=== PATIENT | female | born 1950 | race Caucasian/White ===

== ENCOUNTER → 2017-05-19 11:17 | Outpatient (CLI) | payer MEDICARE, SELFPAY ==
--- NOTE | 2017-05-19 11:26 | XR_ITS ---
XR chest 2V HISTORY: Chest pain on breathing ITS.REASON: PLEURISY ORDERING PHYSICIAN: Noé Block MD PATIENT AGE: 67 years COMPARISON: 10/19/2013 FINDINGS: The cardiomediastinal silhouette and pulmonary vascularity are within normal limits. The lungs are clear without infiltrates, suspicious nodules, or pleural effusions. There are old left-sided rib fractures.. IMPRESSION: No change with no acute finding
[2017-05-19 12:01] LABS: Basophils % 0.5 % (0.1-2.0); Eosinophils # 0.1 K/mm3 (0.0-0.4); Eosinophils % 1.4 % (0.1-12.0); Lymphocytes # 1.2 K/mm3 (0.7-4.5); Lymphocytes % 21.4 K/mm3 (10-50); Mean Corpuscular HGB Conc 32.6 g/dL (31.8-35.4); Mean Corpuscular Hemoglobin 28.1 pg (27.0-31.2); Mean Corpuscular Volume 86.2 fl (81-99); Mean Platelet Volume 7.8 fl (7.4-10.4); Monocytes # 0.4 K/mm3 (0.1-1.0); Monocytes % 7.5 % (1.7-9.3); Neutrophils # 3.8 K/mm3 (1.8-7.8); Neutrophils % 69.1 % (37.0-80.0); Platelet Count 243 K/mm3 (142-424); Red Blood Count 4.99 M/mm3 (4.20-5.40); Red Cell Distribution Width 12.9 % (11.5-17.5); White Blood Count 5.4 K/mm3 (4.8-10.8)
[2017-05-19 12:51] LABS: Alanine Aminotransferase 25 U/L (12-78); Albumin/Globulin Ratio 1.2 (1.1-1.8); Alkaline Phosphatase 64 U/L (46-116); Anion Gap 12.5 mEq/L (5-15); Aspartate Amino Transferase 23 U/L (15-37); Bilirubin,Total 0.3 mg/dL (0.2-1.0); Blood Urea Nitrogen 16 mg/dL (7-18); Calcium 9.3 mg/dL (8.5-10.1); Carbon Dioxide 27 mmol/L (21.0-32.0); Chloride 105 mmol/L (98-107); Creatine Kinase 34 U/L (26-192); Creatinine,Serum 0.78 mg/dL (0.55-1.02); Estimated Glomerular Filt Rate 73 ml/min (>60); GFR (African American) 89 ML/MIN (>60); Globulin 3.4 gm/dl (1.3-3.2); Glucose 110 mg/dL (74-106); Potassium 4.5 mmoL/L (3.5-5.1); Sodium 140 mmol/L (136-145); Total Protein,Serum 7.4 gm/dL (6.4-8.2); Troponin I < 0.02 ng/ml (0.00-0.06)
[2017-05-19 12:53] LABS: CKMB Relative Index 1.5 U/L (0-4.0); Creatine Kinase MB < 0.5 mg/ml (0.0-3.6)
== END ==
PROVIDERS: PCP Internal Medicine Adolescent Medicine; Visit Provider Internal Medicine Adolescent Medicine
DX: R09.1 Pleurisy (principal)
CPT/HCPCS: 36415; 71046; 80053; 82550; 82553; 84484; 85025

== ENCOUNTER → 2018-04-11 09:33 | Outpatient (CLI) | payer MEDICARE, SELFPAY ==
--- NOTE | 2018-04-11 09:37 | MM_ITS ---
MM Dig screening mamm BI w/CAD ORDERING PHYSICIAN : Maykel Goldstein MD PATIENT AGE: 68 years GENDER: Female COMPARISON: Bilateral digital mammogram December 2013 is most useful Film screen left mammogram September 2001 of limited benefit INDICATION: ITS.REASON: SCREENINGNo hormones. Previous cyst aspiration right breast. Mother with breast cancer age 80 for postmenopausal. TECHNIQUE: Standard CC and MLO images were obtained. R2 CAD reviewed. Axillary cc view both breast included & also helpful when compared to previous 2014 study FINDINGS: Moderate density breast bilaterally. Mammography is of decreased sensitivity in regions of of more pronounced, dense fibroglandular tissue, as seen towards upper-outer quadrant bilaterally. However prior studies show no appreciable change. Overall satisfactory Stable appearance bilaterally no new areas of significant concern in either breast. If any palpable area should develop low threshold for ultrasound increased as ultrasound is useful augment, compliment to mammography in areas of dense breast tissue. Prior 2014 mammogram films are very helpful and supportive stable pattern. Minimal basilar calcifications again seen bilaterally . IMPRESSION: 1. Stable bilateral mammogram . Moderately dense breast bilaterally with no significant new areas of concern 2. Bilateral follow-up in one year recommended and should be encouraged BI-RADS Category: 2 Benign Finding(s) RECOMMENDED FOLLOW-UP: 1YR 1 YEAR FOLLOW-UP (A letter has been sent to the patient regarding results of the study.)
--- NOTE | 2018-04-11 09:38 | XR_ITS ---
XR DEXA axial skeleton HISTORY: ITS.REASON: POST MENOPAUSAL ORDERING PHYSICIAN: Maykel Goldstein MD PATIENT AGE: 68 years COMPARISON: Ill and 1316 1112%. 0.16 1. 2149 04/10/2018 FINDINGS: The BMD measured at the AP spine L1-L4 is 0.680 g/cm squared with a T score of -4.2. This is considered Osteoporotic according to the World Health Organization criteria. Fracture risk is High. Treatment is advised. The mean hip density has a T score of -3.0. IMPRESSION: Osteoporosis with high fracture risk. Treatment recommended. Suggest follow-up exam April 2019
== END ==
PROVIDERS: PCP Internal Medicine Adolescent Medicine; Visit Provider Internal Medicine Adolescent Medicine
DX: Z12.31 Encounter for screening mammogram for malignant neoplasm of breast (principal); Z78.0 Asymptomatic menopausal state
CPT/HCPCS: 77067; 77080

== ENCOUNTER → 2020-09-16 18:30 | Outpatient (CLI) | payer MEDICARE, SELFPAY ==
[2020-09-16 19:01] LABS: Basophils # 0.1 K/mm3 (0-0.2); Eosinophils # 0.2 K/mm3 (0.0-0.4); Eosinophils % 3.6 % (0.1-12.0); Hematocrit 41.5 % (37.0-47.0); Hemoglobin 13.7 g/dL (12.2-16.2); Lymphocytes # 2.3 K/mm3 (0.7-4.5); Lymphocytes % 42.3 % (10-50); Mean Corpuscular Volume 87.9 fl (81-99); Mean Platelet Volume 9.5 fl (7.4-10.4); Monocytes # 0.5 K/mm3 (0.1-1.0); Monocytes % 8.9 % (1.7-9.3); Neutrophils # 2.4 K/mm3 (1.8-7.8); Neutrophils % 44.3 % (37.0-80.0); Platelet Count 293 K/mm3 (142-424); Red Blood Count 4.72 M/mm3 (4.20-5.40); Red Cell Distribution Width 13.2 % (11.5-17.5); White Blood Count 5.5 K/mm3 (4.8-10.8)
[2020-09-16 19:21] LABS: Alanine Aminotransferase 16 U/L (12-78); Albumin Level 4.7 g/dl (3.5-5.0); Albumin/Globulin Ratio 1.8 (1.1-1.8); Alkaline Phosphatase 81 U/L (38-126); Anion Gap 9.4 mEq/L (5-15); Aspartate Amino Transferase 28 U/L (14-36); Bilirubin,Total 0.4 mg/dl (0.2-1.3); Blood Urea Nitrogen 10 mg/dl (7-17); Calcium 9.6 mg/dl (8.4-10.2); Carbon Dioxide 27 mmol/L (22.0-30.0); Chloride 105 mmol/L (98-107); Cholesterol 216 mg/dl (140-200); Estimated Glomerular Filt Rate 99 ml/min (>60); GFR (African American) 119 ML/MIN (>60); Globulin 2.6 g/dL (1.3-3.2); Glucose 94 mg/dl (74-100); HDL Cholesterol 54 mg/dl (40-60); Potassium 4.4 mmoL/L (3.5-5.1); Sodium 137 mmol/L (136-145); Total Protein,Serum 7.3 g/dl (6.3-8.2); Triglycerides 153 mg/dl (30-150); VLDL Cholesterol 31 mg/dL (0-40)
[2020-09-16 19:33] LABS: Direct LDL Cholesterol 103.99 mg/dL (100-129)
[2020-09-16 19:52] LABS: Thyroid Stimulating Hormone 3.21 uIU/mL (0.465-4.68)
[2020-09-16 20:11] LABS: Vitamin B12 496 pg/mL (239-931)
[2020-09-16 20:35] LABS: 25-OH Vitamin D, Total 30.1 ng/mL (30-100)
== END ==
PROVIDERS: Visit Provider Internal Medicine Adolescent Medicine
DX: Z00.00 Encounter for general adult medical examination without abnormal findings (principal); R53.81 Other malaise; R53.83 Other fatigue; D12.6 Benign neoplasm of colon, unspecified; K21.9 Gastro-esophageal reflux disease without esophagitis; N20.0 Calculus of kidney
CPT/HCPCS: 80053; 80061; 82306; 82607; 84443; 85025

== ENCOUNTER → 2020-10-14 10:43 | Outpatient (CLI) | payer MEDICARE, SELFPAY ==
--- NOTE | 2020-10-14 10:45 | MM_ITS ---
PROCEDURE INFORMATION: Exam: MG Screening 3D Mammography Exam date and time: 10/14/2020 10:45 AM Age: 70 years old Clinical indication: screening mammogram TECHNIQUE: Imaging protocol: Screening tomosynthesis and 2D mammography including computer-aided detection (CAD) when performed. COMPARISON: 1. MG SCBI MM Dig screening mamm BI w/CAD 04/11/2018 10:13 AM 2. MG DMSB DIG MAMM-SCREEN ALEX 12/18/2013 9:27 AM FINDINGS: MAMMOGRAPHY: Breast composition: The breast tissue is heterogeneously dense, which may obscure small masses. Mass: None. Architectural distortion: No new or suspicious architectural distortion. Calcifications: Stable benign-appearing calcifications are present. No new or suspicious cluster of microcalcifications have developed. Asymmetric density: No new or suspicious asymmetric density is present Skin thickening: None. Axillary adenopathy: None. IMPRESSION: No mammographic evidence of malignancy. Recommend annual screening mammography unless otherwise clinically indicated. ASSESSMENT: BI-RADS category 2: Benign
== END ==
PROVIDERS: PCP Internal Medicine Adolescent Medicine; Visit Provider Internal Medicine Adolescent Medicine
DX: Z12.31 Encounter for screening mammogram for malignant neoplasm of breast (principal); Z11.52 Encounter for screening for COVID-19
CPT/HCPCS: 77063; 77067; U0003

== ENCOUNTER 2020-10-16 06:21 | Day surgery (SDC) | payer MEDICARE, SELFPAY ==
[2020-10-09 10:36] VITALS: BMI 22.1
[2020-10-16] VITALS (7 sets, daily range): BP systolic 77–122; BP diastolic 48–84; PULSE 65–107; RESP 16–18; TEMP 36.4–36.8; O2SAT 94–99
--- NOTE | 2020-10-16 06:58 | HMH.ANESCL ---
[facility] Anesthesia Checklist - Structural Data Admitted From: Home Planned Operative Procedure/s: egd/colonoscopy Consent for Planned Operative Procedure(s) Verified: Yes - Additional verifications Anesthesia Reactions: No - Airway Assessment C-Spine Mobility Assessed: Yes TMJ Mobility Assessed: Yes Dentition: Good Dentition - Neurological Assessment Level of Consciousness: Awake, Alert, Appropriate - Anesthesia Plan Anesthesia Risk discussed: Yes Anesthesia Plan: Verified ASA Class: II Anesthesia Type: MAC [facility] History I have reviewed the patient's past medical history: Yes Medical History: Reports:: Gastroesophageal Reflux Disease(GERD), Kidney Stones Denies:: Cancer, Diabetes Mellitus Type 1, Diabetes Mellitus Type 2, Internal Pacemaker, Lung Disease, MRSA, Seizures *Have you ever received a pneumonia vaccine?: Yes *Have you received a flu vaccine this season?: Yes Anesthesia experience/problems:: none Other Surgeries: Yes: Colonoscopy, Other. No: Pacemaker Amputation: No Fractures: Yes - *Social History Last grade of school completed: High school graduate Smoking Status: Never smoker Alcohol Intake: never Substance Use Type: denies use *Occupational Status:: retired Housing: house Household Members: spouse, children *Travel in the last 8 weeks: None Family Hx:: Cancer
--- NOTE | 2020-10-16 08:20 | HMH.SCOPE ---
- Procedure: Date: 10/16/20 Patient Date of :: 1950 Procedure Performed:: Esophagogastroduodenoscopy with biopsy Colonoscopy with polypectomy Indications:: Gastroesophageal reflux History of multiple complex polyps including a 1.5 cm polyp at 10 cm that was a tubular adenoma with a small focus of high-grade dysplasia. This was excised in 2019. 2 separate colonoscopies in 2019 revealed multiple other complex polyps, hemorrhoidal cushions, scattered diverticulosis, and severe spasticity limiting visualization. Performing Provider:: Jimmie Almanza MD Referring Provider:: Dr. Block Sedation:: Monitored anesthesia care Procedure:: After informed consent was obtained the patient was taken to the endoscopy suite. Sedation ensued after the patient was transferred to the left lateral decubitus position. Pulse, blood pressure, and oxygen saturation were monitored throughout the procedure. The endoscope was advanced beyond the duodenal bulb. Retroflexion within the gastric lumen was accomplished. The gastroscope was carefully removed. Digital rectal exam revealed no significant abnormality. The colonoscope was placed in position. The entire colon was evaluated. The colonoscope was carefully removed and the patient was transferred to recovery in stable condition. Please see findings and specimens below for detail. Findings:: Mild gastritis Sliding hiatal hernia Schatzki ring Small varix at 25 cm Junction at 38 cm Bowel preparation fair to moderate Fairly significant spasticity Hemorrhoidal tag/cushions unchanged Scattered diverticulosis (mostly in sigmoid) Lobulated polyps Specimens:: Antral biopsy Biopsy of gastroesophageal junction/Schatzki ring Hepatic flexure polyp Lobulated transverse colon polyp (snare) Recommendations:: Proton pump inhibition Follow-up pathology Timing of repeat colonoscopy is pending pathology but will likely be around 2-3 years secondary to history of multiple complex polyps, polyps noted on fairly short-term repeat evaluation, and spasticity. Complications:: No immediate Estimated blood obtained (mL): 1
== END 2020-10-16 09:10 | disposition home or self-care (01) ==
LOC: OUTP 06:23
PROVIDERS: PCP Internal Medicine Adolescent Medicine; Visit Provider Surgery
PROC: 0DJ08ZZ Inspection of Upper Intestinal Tract, Via Natural or Artificial Opening Endoscopic (ICD-10-PCS; CPT 43235; principal; 2020-10-16 07:30)
DX: Z12.11 Encounter for screening for malignant neoplasm of colon (principal); K21.9 Gastro-esophageal reflux disease without esophagitis; K57.30 Diverticulosis of large intestine without perforation or abscess without bleeding; K64.8 Other hemorrhoids; K63.5 Polyp of colon; K58.9 Irritable bowel syndrome, unspecified; K29.60 Other gastritis without bleeding; K44.9 Diaphragmatic hernia without obstruction or gangrene; K22.2 Esophageal obstruction; I85.00 Esophageal varices without bleeding; Z86.010 Personal history of colon polyps; Z79.899 Other long term (current) drug therapy
CPT/HCPCS: 43239; 45385; 88305

== ENCOUNTER 2020-11-18 18:03 | Emergency (ER) | payer MEDICARE, SELFPAY ==
[2020-11-18 18:04] VITALS: BP 157/93; PULSE 107; RESP 16; TEMP 37.2; O2SAT 95; BMI 22.1
--- NOTE | 2020-11-18 18:14 | HMH.EDGENADL ---
ED Disposition Condition on Discharge: Good - Critical Care Critical Care Time: No <MissaelAugustus - Last Filed: 11/18/20 20:16> <Floyd Chacon - Last Filed: 11/18/20 20:58> Clinical Impression: Right leg numbness, Right leg weakness Disposition: Home, Self-Care Instructions: DI for Muscle Weakness, DI for Numbness/Tingling Additional Instructions: call pcp for follow up Referrals: Noé Block MD [Primary Care Provider] - Attestation: On 11/18/20, the high probability of a clinically significant, sudden or life threatening deterioration of the following system(s) required my full and direct attention, intervention and personal management. The time I documented below is in addition to time spent performing reported procedures but includes the following listed in this critical care notation. Medical Decision Making - Josh Inquiry Pt receiving controlled substance: No - Lab Data Result diagrams: 11/18/20 18:30 11/18/20 18:30 - Reevaluation(s) Time: 20:18 <MissaelAugustus - Last Filed: 11/18/20 20:16> - Lab Data Lab results reviewed: Yes: I reviewed the patient's lab results. Result diagrams: 11/18/20 18:30 11/18/20 18:30 - CT Data CT Scan: Other (cta head/neck) Time Received: 20:[address] Reviewed: Yes: I have viewed the radiologist's interpretation Preliminary Findings: Normal/NAD <Floyd Chacon - Last Filed: 11/18/20 20:58> Vital Signs: 11/18/20 18:04 11/18/20 18:45 11/18/20 19:00 Temperature 99.0 F Temperature Source Oral Pulse Rate 99 H 97 H Pulse Rate [Left] 107 H Respiratory Rate 16 18 18 Blood Pressure 145/83 H 130/85 Blood Pressure [Right Arm] 157/93 H Blood Pressure Mean [Right Arm] 114 02 Sat by Pulse Oximetry 95 96 96 Oxygen Delivery Method Room Air - Lab Data Lab Results 11/18/20 18:30: WBC 6.1, RBC 4.47, Hgb 12.7, Hct 38.4, MCV 85.8, MCH 28.5, MCHC 33.2, RDW 12.4, Plt Count 246, MPV 7.8, Neut % (Auto) 50.9, Lymph % (Auto) 35.8, [place] % (Auto) 8.6, Eos % (Auto) 4.1, Baso % (Auto) 0.6, Neut # (Auto) 3.1, Lymph # (Auto) 2.2, [place] # (Auto) 0.5, Eos # (Auto) 0.3, Baso # (Auto) 0.0 11/18/20 18:30: Sodium 139, Potassium 4.3, Chloride 105, Carbon Dioxide 25, Anion Gap 13.3, BUN 21 H, Creatinine 0.80, Estimated Creat Clear 49, Estimated GFR 71, Est GFR ( Amer) 86, Glucose 110 H, Calcium 8.9 Orders (Tests/Meds): ED MEDICATIONS Discontinued Medications Generic Name Dose Route Start Last Admin Trade Name Freq PRN Reason Stop Dose Admin Diphenhydramine HCl 25 mg 11/18/20 18:33 11/18/20 18:45 Diphenhydramine 50mg/Ml Vial IV 11/18/20 18:34 25 mg ONCE ONE Administration Iopamidol 100 ml 11/18/20 19:51 11/18/20 19:52 Iopamidol-370 (76%);100ml Bottle IV 11/18/20 19:52 100 ml ONCE ONE Administration Methylprednisolone Sodium Succinate 125 mg 11/18/20 18:33 11/18/20 18:45 Methylprednisolone Sod Succ 125mg Vial IV 11/18/20 18:34 125 mg ONCE ONE Administration Sodium Chloride 50 ml 11/18/20 19:51 11/18/20 19:52 0.9 % Sodium Chloride 50 Ml Vial IV 11/18/20 19:52 50 ml ONCE ONE Administration Sodium Chloride 10 ml 11/18/20 19:51 11/18/20 19:52 Sodium Chloride 0.9% 10ml Syr (Rad Only) IV 11/18/20 19:52 10 ml ONCE ONE Administration - ECG Data Tracing #1 EKG interpreted by Augustus Canas MD: Rhythm: sinus Rate: 93 Higgins: normal Ectopy: none Conduction: normal ST Segment Changes: none T Wave Changes: none Q Waves: none No evidence of acute ischemia or injury Normal electrocardiogram (Augustus Canas) - Reevaluation(s) Reevaluation #1: Asymptomatic. All symptoms have completely resolved. (Augustus Canas) Medical Decision Narrative: 8:00 PM: At shift change, I have discussed the patient with the oncoming physician, who will assume care of the patient at this time. I have discussed all clinical information including history, physical and diagnostic study r
--- NOTE | 2020-11-18 18:25 | CT_ITS ---
PROCEDURE INFORMATION: Exam: CT Head Without Contrast Exam date and time: 11/18/2020 6:25 PM Age: 70 years old Clinical indication: Numbness / parasthesia; Bilateral; Patient HX: Patient went temporarily numb from neck down while shopping today. Possible TIA per Dr maradiaga TECHNIQUE: Imaging protocol: Computed tomography of the head without contrast. Radiation optimization: All CT scans at this facility use at least one of these dose optimization techniques: automated exposure control; mA and/or kV adjustment per patient size (includes targeted exams where dose is matched to clinical indication); or iterative reconstruction. COMPARISON: [facility] MRI-BRAIN W/WO 11/26/2013 8:52 AM FINDINGS: Brain: Normal. No hemorrhage. Unremarkable white matter. No mass effect. Cerebral ventricles: No ventriculomegaly. Paranasal sinuses: Mucosal disease better seen on comparison CTA. Mastoid air cells: Visualized mastoid air cells are well aerated. Bones/joints: Unremarkable. No acute fracture. Soft tissues: Unremarkable. Other findings: No reconstructions provided. IMPRESSION: No acute intracranial pathology
--- NOTE | 2020-11-18 18:25 | CT_ITS ---
PROCEDURE INFORMATION: Exam: CT Angiography Head With Contrast, Arteriography Exam date and time: 11/18/2020 6:25 PM Age: 70 years old Clinical indication: Patient HX: Possible TIA, patient went numb from neck down temporarily while shopping. Numbness has gone away. TECHNIQUE: Imaging protocol: Computed tomography angiography of the head with contrast. Exam focused on the arteries. 3D rendering (Not supervised by radiologist): MIP and/or 3D reconstructed images were created by the technologist. Radiation optimization: All CT scans at this facility use at least one of these dose optimization techniques: automated exposure control; mA and/or kV adjustment per patient size (includes targeted exams where dose is matched to clinical indication); or iterative reconstruction. Contrast material: ISOVUE 370; Contrast volume: 100 ml; Contrast route: INTRAVENOUS (IV); COMPARISON: CT HEAD/BRAIN WO CON 11/18/2020 7:38 PM FINDINGS: ANTERIOR CIRCULATION: Right internal carotid artery: Unremarkable. Intracranial segment is patent with no significant stenosis. No aneurysm. Right middle cerebral artery: Unremarkable. No occlusion or significant stenosis. No aneurysm. Right anterior cerebral artery: Unremarkable. No occlusion or significant stenosis. No aneurysm. Left internal carotid artery: Unremarkable. Intracranial segment is patent with no significant stenosis. No aneurysm. Left middle cerebral artery: Unremarkable. No occlusion or significant stenosis. No aneurysm. Left anterior cerebral artery: Unremarkable. No occlusion or significant stenosis. No aneurysm. POSTERIOR CIRCULATION: Right vertebral artery: Unremarkable. No occlusion or significant stenosis. No aneurysm. Left vertebral artery: Unremarkable. No occlusion or significant stenosis. No aneurysm. Basilar artery: Unremarkable. No occlusion or significant stenosis. No aneurysm. Right posterior cerebral artery: Incidental note of origin of the right MEDICAL SCHEDULER. Left posterior cerebral artery: Unremarkable. No occlusion or significant stenosis. No aneurysm. Brain: No definite mass, mass effect, or midline shift. Cerebral ventricles: No ventriculomegaly. Bones/joints: Unremarkable. No acute fracture. Soft tissues: Unremarkable. Paranasal sinuses: Mucosal disease in the paranasal sinuses is worst in the right ethmoids and right maxillary sinus. No air-fluid levels to suggest acute sinusitis. IMPRESSION: No evidence of occlusion or high-grade stenosis
--- NOTE | 2020-11-18 18:25 | CT_ITS ---
PROCEDURE INFORMATION: Exam: CT Angiography Neck With Contrast Exam date and time: 11/18/2020 6:25 PM Age: 70 years old Clinical indication: Patient HX: Patient went numb from neck down while shopping today. Numbness has since subsided. Possible TIA per Dr maradiaga TECHNIQUE: Imaging protocol: Computed tomography angiography of the neck with contrast. 3D rendering (Not supervised by radiologist): MIP and/or 3D reconstructed images were created by the technologist. Radiation optimization: All CT scans at this facility use at least one of these dose optimization techniques: automated exposure control; mA and/or kV adjustment per patient size (includes targeted exams where dose is matched to clinical indication); or iterative reconstruction. Contrast material: ISOVUE 370; Contrast volume: 100 ml; Contrast route: INTRAVENOUS (IV); COMPARISON: CT HEAD/BRAIN WO CON 11/18/2020 7:38 PM FINDINGS: Right common carotid artery: No stenosis. No dissection or occlusion. Right internal carotid artery: No stenosis of the extracranial segment. No dissection or occlusion. Incidental note of tortuosity in the distal portion. Right external carotid artery: No occlusion or stenosis of the origin. Left common carotid artery: No stenosis. No dissection or occlusion. Left internal carotid artery: No stenosis of the extracranial segment. No dissection or occlusion. Incidental note of tortuosity in the distal portion. Left external carotid artery: No occlusion or stenosis of the origin. Right vertebral artery: No stenosis. No dissection or occlusion. Left vertebral artery: No stenosis. No dissection or occlusion. Soft tissues: Normal. No significant soft tissue swelling. Bones/joints: No acute fracture. IMPRESSION: No stenosis or occlusion. REFERENCES: NASCET CRITERIA. The degree of internal carotid artery stenosis is based on NASCET criteria. Normal is no stenosis. Mild is less than 50% stenosis. Moderate is 50-69% stenosis. Severe is 70% to 99% stenosis. Total occlusion is no detectable patent lumen.
--- NOTE | 2020-11-18 18:25 | ECG_ITS ---
APPROVED REPORT Exam: Resting ECG HR:93 bpm ECG Measurements Heart Rate 93 AXES NE 152 P 62 QRSd 74 QRS 50 QT 358 T 56 QTc 445 Conclusion Normal sinus rhythm Normal ECG Electronically signed by : Noé Block, 11/19/2020 21:37:47
[2020-11-18 18:45] VITALS: BP 145/83; PULSE 99; RESP 18; O2SAT 96
--- NOTE | 2020-11-18 18:47 | HMH.ITSTN ---
pt allergic to contrast asked if er wanted to premedicate,,they are going to asked venessa to call when patient is ready for ct scan
[2020-11-18 19:00] VITALS: BP 130/85; PULSE 97; RESP 18; O2SAT 96
[2020-11-18 19:03] LABS: Basophils % 0.6 % (0.1-2.0); Eosinophils # 0.3 K/mm3 (0.0-0.4); Eosinophils % 4.1 % (0.1-12.0); Hematocrit 38.4 % (37.0-47.0); Hemoglobin 12.7 g/dL (12.2-16.2); Lymphocytes # 2.2 K/mm3 (0.7-4.5); Lymphocytes % 35.8 % (10-50); Mean Corpuscular HGB Conc 33.2 g/dL (31.8-35.4); Mean Corpuscular Hemoglobin 28.5 pg (27.0-31.2); Mean Corpuscular Volume 85.8 fl (81-99); Mean Platelet Volume 7.8 fl (7.4-10.4); Monocytes # 0.5 K/mm3 (0.1-1.0); Monocytes % 8.6 % (1.7-9.3); Neutrophils # 3.1 K/mm3 (1.8-7.8); Neutrophils % 50.9 % (37.0-80.0); Platelet Count 246 K/mm3 (142-424); Red Blood Count 4.47 M/mm3 (4.20-5.40); Red Cell Distribution Width 12.4 % (11.5-17.5); White Blood Count 6.1 K/mm3 (4.8-10.8)
[2020-11-18 19:17] LABS: Anion Gap 13.3 mEq/L (5-15); Blood Urea Nitrogen 21 mg/dl (7-17); Calcium 8.9 mg/dl (8.4-10.2); Carbon Dioxide 25 mmol/L (22.0-30.0); Chloride 105 mmol/L (98-107); Creatinine Clearance Estimated 49 mL/min (50-200); Estimated Glomerular Filt Rate 71 ml/min (>60); GFR (African American) 86 ML/MIN (>60); Glucose 110 mg/dl (74-100); Potassium 4.3 mmoL/L (3.5-5.1); Sodium 139 mmol/L (136-145)
--- NOTE | 2020-11-18 19:28 | PC.NURSE ---
Radiology tests require PIV in AC, new IV placed to Left AC. Radiology notified that pt is ready.
--- NOTE | 2020-11-18 19:32 | PC.NURSE ---
Pt to CT at this time
--- NOTE | 2020-11-18 19:51 | PC.NURSE ---
Pt back from CT
[2020-11-18 21:03] VITALS: BP 146/88; PULSE 94; RESP 16; TEMP 37.2; O2SAT 98
== END 2020-11-18 21:05 | disposition home or self-care (01) ==
PROVIDERS: Emergency Provider Emergency Medicine; PCP Internal Medicine Adolescent Medicine
DX: R29.898 Other symptoms and signs involving the musculoskeletal system (principal); R20.2 Paresthesia of skin; K21.9 Gastro-esophageal reflux disease without esophagitis; Z87.442 Personal history of urinary calculi
CPT/HCPCS: 70450; 70496; 70498; 80048; 85025; 93005; 96374; 96375; 99283; Q9967

== ENCOUNTER → 2020-11-28 09:40 | Outpatient (CLI) | payer MEDICARE, SELFPAY ==
--- NOTE | 2020-11-28 09:47 | CA_ITS ---
APPROVED REPORT EXAM: Comprehensive 2D, Doppler, and color-flow Echocardiogram Shop Director: Evelin Benjamin, RT(R) Ht: 5 ft 4 in Wt: 133lbs BSA: 1.64 BP: 138/85 mmHg Indications: GERD, TIA, ordered as a bubble study Echo Enhancing Agent Indication: Rule out Shunt Agent(s) / Amount(s) Used: Agitated Saline 10 cc 2D Dimensions LVOT 2.04 cm (M/F) 1.5-2.5 M-Mode Dimensions RVDd 1.55 cm (0.9-2.6) LA Diam 4.80 cm (1.9-4.0) LVDd 3.97 cm (3.5-5.7) Ao Diam 2.40 cm (2.0-3.7) LVDs 2.50 cm (3.5-5.7) IVSd 0.83 cm (0.6-1.1) PWd 0.68 cm (0.6-1.1) EF (Teich) 67.60% FS 37.00% EDV (Teich) 68.80 mL ESV (Teich) 22.30 mL LV Diastology E Decel Time 150.00 (160-240 msec) E/A Ratio 0.8 MED E' 5.50 (< 7 cm/sec) E'/MED E' Ratio 13.65 (>14) LAT E' 7.10 (<10 cm/sec) E/LAT E' Ratio 10.58 (>14) Mitral Valve MV E Max Esteban. 75.00 (40-130 cm/s) MV A Velocity 90.00 (40-130 cm/s) E/A Ratio 0.83 MV Decel. Time 150.00 (160-240 ms) MV PHT 44.00 ms Left Ventricle Left atrium is mildly enlarged, left ventricle is normal size, mild concentric left ventricular hypertrophy, visually estimated ejection fraction 55% with no regional wall motion abnormality, grade 1 diastolic dysfunction seen without tissue Doppler evidence of raise left atrial pressure. Right Ventricle Right atrium and right ventricle are normal size and contractility. Atria Intra-atrial septum is intact, agitated saline contrast study identifies right to left shunt likely secondary to patent foramen ovale. Aortic Valve Aortic valve is minimally thickened and fibrosed, there is no aortic stenosis or aortic insufficiency. Mitral Valve Mitral valve is grossly normal, there is trace mitral regurgitation. Tricuspid Valve Tricuspid valve grossly normal, there is trace tricuspid regurgitation, tricuspid regurgitation jet velocity is inadequate for calculation of the right ventricular systolic pressure. Pulmonic Valve Pulmonic valve is poorly visualized. Great Vessels Aortic root is normal size. Pericardium No significant pericardial effusion noted. Conclusion 1. Mildly enlarged left atrium, normal left ventricular size, mild concentric left ventricular hypertrophy, visually estimated ejection fraction 55% with no regional wall motion abnormality, grade 1 diastolic dysfunction seen without tissue Doppler evidence of raise left atrial pressure. 2. Patent foramen ovale with [id number] shunt. 3. No significant pericardial effusion noted. Electronically signed by : Omkar Marsh, 11/28/2020 11:32:04
== END ==
PROVIDERS: PCP Internal Medicine Adolescent Medicine; Visit Provider Internal Medicine Adolescent Medicine
DX: G45.8 Other transient cerebral ischemic attacks and related syndromes (principal)
CPT/HCPCS: 93225; 93226; 93306

== ENCOUNTER → 2021-12-18 08:40 | Outpatient (CLI) | payer MEDICARE, SELFPAY ==
[2021-12-18 18:10] LABS: Alanine Aminotransferase 41 U/L (12-78); Albumin Level 4.1 g/dl (3.5-5.0); Albumin/Globulin Ratio 1.6 (1.1-1.8); Alkaline Phosphatase 84 U/L (38-126); Anion Gap 9.6 mEq/L (5-15); Aspartate Amino Transferase 42 U/L (14-36); Basophils % 0.6 % (0.1-2.0); Blood Urea Nitrogen 14 mg/dl (7-17); Calcium 9.2 mg/dl (8.4-10.2); Carbon Dioxide 28 mmol/L (22.0-30.0); Chloride 106 mmol/L (98-107); Eosinophils # 0.4 K/mm3 (0.0-0.4); Eosinophils % 7.5 % (0.1-12.0); Estimated Glomerular Filt Rate 82 ml/min (>60); GFR (African American) 100 ML/MIN (>60); Globulin 2.6 g/dL (1.3-3.2); Glucose 113 mg/dl (74-100); Hematocrit 43.1 % (37.0-47.0); Hemoglobin 13.7 g/dL (12.2-16.2); Lymphocytes # 2.1 K/mm3 (0.7-4.5); Lymphocytes % 41.7 % (10-50); Mean Corpuscular HGB Conc 31.8 g/dL (31.8-35.4); Mean Corpuscular Hemoglobin 28.9 pg (27.0-31.2); Mean Corpuscular Volume 90.9 fl (81-99); Mean Platelet Volume 10.2 fl (7.4-10.4); Monocytes # 0.5 K/mm3 (0.1-1.0); Monocytes % 10.4 % (1.7-9.3); Neutrophils % 39.7 % (37.0-80.0); Platelet Count 307 K/mm3 (142-424); Potassium 4.6 mmoL/L (3.5-5.1); Red Blood Count 4.74 M/mm3 (4.20-5.40); Red Cell Distribution Width 13.5 % (11.5-17.5); Sodium 139 mmol/L (136-145); Total Protein,Serum 6.7 g/dl (6.3-8.2)
[2021-12-18 18:13] LABS: Bilirubin,Total 0.1 mg/dl (0.2-1.3)
[2021-12-18 18:28] LABS: 25-OH Vitamin D, Total 40.9 ng/mL (30-100)
[2021-12-18 18:41] LABS: Thyroid Stimulating Hormone 2.67 uIU/mL (0.465-4.68)
== END ==
PROVIDERS: Student in an Organized Health Care Education/Training Program; PCP Family Medicine; Visit Provider Family Medicine
DX: R20.0 Anesthesia of skin (principal); M81.0 Age-related osteoporosis without current pathological fracture; Z76.89 Persons encountering health services in other specified circumstances
CPT/HCPCS: 80053; 82306; 84443; 85025

== ENCOUNTER → 2022-02-11 08:12 | Outpatient (CLI) | payer MEDICARE, SELFPAY ==
--- NOTE | 2022-02-11 08:12 | XR_ITS ---
FINAL REPORT TECHNIQUE: Bone densitometry calculations of the lumbar spine and left hip were obtained. CLINICAL HISTORY: . screening, prior 2018 FINDINGS: DEXA BONE DENSITY AXIAL SKELETON Using L1-4, the bone mineral density of the spine is 0.574 g/cm2, corresponding to T-score of -4.3. Using the left hip, the bone mineral density of the femoral neck is 0.485 g/cm2, corresponding to a T-score of -3.3. NOTE: T-score: Standard deviation compared with peak bone mass of young adult mean. *Following the recommendations of the International Society of Bone Densitometry, classification of hip BMD is based on the lower of two T-scores; total hip or femoral neck. IMPRESSION: Osteoporosis: Lowest T-score is at or below -2.5. This patient's T-score meets the World Health Organization criteria for osteoporosis. Reviewed, Interpreted and Dictated by Hussain Russell III, MD Transcribed by Savi Roca Authenticated and [facility]
--- NOTE | 2022-02-11 08:12 | MM_ITS ---
PROCEDURE INFORMATION: Exam: MG Bilateral Screening 3D Mammography Exam date and time: 02/11/2022 8:42 AM Age: 72 years old Clinical indication: Screening examination TECHNIQUE: Imaging protocol: Bilateral Screening tomosynthesis and 2D mammography including computer-aided detection (CAD) when performed. COMPARISON: 1. MG MM DIG SCREENING MAMM BI W/CAD 10/14/2020 11:08 AM 2. MG SCBI MM Dig screening mamm BI w/CAD 04/11/2018 10:13 AM FINDINGS: MAMMOGRAPHY: Breast composition: The breasts are heterogeneously dense, which may obscure small masses. Mass: None. Architectural distortion: None. Calcifications: No suspicious calcifications. Asymmetric density: None. Skin thickening: None. Axillary adenopathy: None. IMPRESSION: No mammographic evidence of malignancy. Annual screening is recommended unless otherwise clinically indicated. ASSESSMENT: BI-RADS Category 1: Negative
--- NOTE | 2022-02-11 08:12 | XR_ITS ---
FINAL REPORT CLINICAL HISTORY: low back pain with left sciatica FINDINGS: LUMBAR SPINE Two views were obtained. There is no acute fracture. There is mild leftward curvature. There is no malalignment. There are mild degenerative changes. There is no soft tissue abnormality. IMPRESSION: Mild degenerative change with no acute bony abnormality. Reviewed, Interpreted and Dictated by Hussain Russell III, MD Transcribed by Savi Roca Authenticated and [facility]
== END ==
PROVIDERS: PCP Family Medicine; Visit Provider Family Medicine
DX: M81.0 Age-related osteoporosis without current pathological fracture; M54.50 Low back pain, unspecified; Z12.31 Encounter for screening mammogram for malignant neoplasm of breast
CPT/HCPCS: 72100; 77063; 77067; 77080

== ENCOUNTER 2022-10-17 08:57 | Observation (INO) | payer MEDICARE, SELFPAY ==
[2022-10-17] VITALS (10 sets, daily range): BP systolic 110–171; BP diastolic 60–100; PULSE 91–125; RESP 16–19; TEMP 36.5–37.9; O2SAT 94–100; BMI 22.6; BMI 22.8
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
--- NOTE | 2022-10-17 09:16 | XR_ITS ---
PROCEDURE INFORMATION: Exam: XR Chest Exam date and time: 10/17/2022 9:20 AM Age: 72 years old Clinical indication: Dyspnea TECHNIQUE: Imaging protocol: Radiologic exam of the chest. Views: 1 view. COMPARISON: CR CXR2V XR chest 2V 05/19/2017 11:32 AM FINDINGS: Lungs: Small patchy opacity at the right base. Left lung remains clear. Pleural spaces: Unremarkable. No pleural effusion. No pneumothorax. Heart/Mediastinum: Unremarkable. No cardiomegaly. Bones/joints: Unremarkable. IMPRESSION: Small patchy opacity at the right base.
[2022-10-17 09:27] LABS: Basophils % 0.3 % (0.1-2.0); Eosinophils # 0.1 K/mm3 (0.0-0.4); Eosinophils % 1.2 % (0.1-12.0); Hematocrit 45.2 % (37.0-47.0); Hemoglobin 14.4 g/dL (12.2-16.2); Lymphocytes # 0.8 K/mm3 (0.7-4.5); Lymphocytes % 11.1 % (10-50); Mean Corpuscular HGB Conc 31.9 g/dL (31.8-35.4); Mean Corpuscular Hemoglobin 28.1 pg (27.0-31.2); Mean Corpuscular Volume 88.1 fl (81-99); Mean Platelet Volume 8.2 fl (7.4-10.4); Monocytes # 0.3 K/mm3 (0.1-1.0); Monocytes % 5.1 % (1.7-9.3); Neutrophils # 5.6 K/mm3 (1.8-7.8); Neutrophils % 82.4 % (37.0-80.0); Platelet Count 302 K/mm3 (142-424); Red Blood Count 5.13 M/mm3 (4.20-5.40); Red Cell Distribution Width 13.1 % (11.5-17.5); White Blood Count 6.8 K/mm3 (4.8-10.8)
[2022-10-17 09:52] LABS: Chloride 100 mmol/L (98-107); Sodium 136 mmol/L (136-145)
[2022-10-17 09:53] LABS: Potassium 3.7 mmoL/L (3.5-5.1)
--- NOTE | 2022-10-17 09:53 | HMH.PHAINT1 ---
Pharmacy Intervention Comments: MEDICATION RECONCILIATION COMPLETED ON PATIENT USING EXTERNAL FILL HISTORY FROM PHARMACY AND LIST FROM PCP OFFICE. -WILBERT BLACKWELL, SONIAD
[2022-10-17 09:55] LABS: Alanine Aminotransferase 79 U/L (12-78); Alkaline Phosphatase 104 U/L (38-126); Aspartate Amino Transferase 87 U/L (14-36); Bilirubin,Total 0.4 mg/dl (0.2-1.3); Blood Urea Nitrogen 11 mg/dl (7-17); Creatinine Clearance Estimated 49 mL/min (50-200); Estimated Glomerular Filt Rate 98 ml/min (>60); GFR (African American) 119 ML/MIN (>60)
[2022-10-17 09:56] LABS: Albumin Level 4.6 g/dl (3.5-5.0); Albumin/Globulin Ratio 1.3 (1.1-1.8); Anion Gap 15.7 mEq/L (5-15); Calcium 9.3 mg/dl (8.4-10.2); Carbon Dioxide 24 mmol/L (22.0-30.0); Globulin 3.5 g/dL (1.3-3.2); Glucose 130 mg/dl (74-100); Total Protein,Serum 8.1 g/dl (6.3-8.2)
[2022-10-17 10:01] LABS: C-Reactive Protein 25.2 mg/L (0-4)
--- NOTE | 2022-10-17 10:04 | EXP.PHA.CONS ---
Pharmacy Consult Date: 10/17/22 Time: 10:04 Referring provider: DR. HAMLIN Reason for Consult:: VANCOMYCIN DOSING Allergies Allergy/AdvReac Type Severity Reaction Status Date / Time acetaminophen AdvReac tachycardia Verified 10/12/22 15:41 [From Excedrin Extra Strength] aspirin AdvReac tachycardia Verified 10/12/22 15:41 [From Excedrin Extra Strength] caffeine AdvReac tachycardia Verified 10/12/22 15:41 [From Excedrin Extra Strength] ibuprofen [From Motrin] AdvReac tachycardia Verified 10/12/22 15:41 CONTRAST DYE Allergy Unknown Uncoded 10/12/22 15:41 Home Medications Medication Instructions Recorded Confirmed Type cetirizine 10 mg capsule (Zyrtec) 10 mg PO DAILY Allergy symptoms 09/24/20 10/17/22 History omeprazole magnesium 20 mg 20 mg PO DAILY Acid reflux 09/24/20 10/17/22 History tablet,delayed release (Prilosec OTC) acetaminophen 500 mg tablet 1,000 mg PO Q6HP PRN Mild Pain 12/18/21 10/17/22 History (Tylenol Extra Strength) (Scale Score 1-4) triamcinolone acetonide 0.1 % 1 applic topical DAILY Infection 10/17/22 10/17/22 History topical cream New Prescriptions to Start Prescriptions: Height: 1.65 m Weight: 61.689 kg Laboratory Results:: Laboratory Results - last 24 hr 10/17/22 09:15: WBC 6.8, RBC 5.13, Hgb 14.4, Hct 45.2, MCV 88.1, MCH 28.1, MCHC 31.9, RDW 13.1, Plt Count 302, MPV 8.2, Neut % (Auto) 82.4 H, Lymph % (Auto) 11.1, [place] % (Auto) 5.1, Eos % (Auto) 1.2, Baso % (Auto) 0.3, Neut # (Auto) 5.6, Lymph # (Auto) 0.8, [place] # (Auto) 0.3, Eos # (Auto) 0.1, Baso # (Auto) 0.0 10/17/22 09:15: Sodium 136, Potassium 3.7, Chloride 100, Carbon Dioxide 24, Anion Gap 15.7 H, BUN 11, Creatinine 0.60, Estimated Creat Clear 49, Estimated GFR 98, Est GFR ( Amer) 119, Glucose 130 H, Calcium 9.3, Total Bilirubin 0.4, AST 87 H, ALT 79 H, Alkaline Phosphatase 104, C-Reactive Protein 25.2 H, Total Protein 8.1, Albumin 4.6, Globulin 3.5 H, Albumin/Globulin Ratio 1.3 Medical History: Medical History (Updated 10/12/22 @ 16:01 by Anderson Quick MD) GERD (gastroesophageal reflux disease) Osteoporosis Assessment and Plan Assessment and plan all Dx Assessment and Plan for all problems:: Pharmacokinetic dosing service Objective: Patient: Floor: Age: 72 yo Serum creatinine: 0.60 mg/dL Height: 65.0 Inches Weight (kg): 61.6 Assessment: IBW (kg): 57.00 Dosing wt(kg): 61.6 Estimated Creatinine clearance (ml/min): 75.1 CRCL method: Cockcroft and Gault using ibw(default). Drug selected: Vancomycin Loading dose (mg): Vd (liters): 46.2 (factor used: 0.75 L/kg) Mandeep (hr-1): 0.067 Half life (hrs): 10.35 CLvanco=?? 3.095 L/hr Recommended dose: 1250 mg Interval: 18 hrs Infusion time (hrs): 2.0 Predicted peak (mcg/mL): 36.1 Predicted trough (mcg/mL): 12.36 Total body weight is being used for vancomycin dosing. Recommendations: Give Vancomycin 1250 mg q 18 hrs with an expected Cpeak of 36.1 mcg/ml and an expected Ctrough of 12.36 mcg/ml AUC 0-24 /RAMIRO Data: RAMIRO 0.5 mcg/mL:?? AUC/RAMIRO:? 1077.0 RAMIRO 1.0 mcg/mL:?? AUC/RAMIRO:? 538.5 --------- RAMIRO 1.5 mcg/mL:?? AUC/RAMIRO:? 359.0 RAMIRO 2.0 mcg/mL:?? AUC/RAMIRO:? 269.3 Thank you for the consult, will continue to follow. -WILBERT BLACKWELL, SONIAD
--- NOTE | 2022-10-17 10:19 | PC.NURSE ---
covid swab sent to lab
--- NOTE | 2022-10-17 10:19 | PC.NURSE ---
pt resting in bed nothing needed at this time, tap ortiz at bedside
--- NOTE | 2022-10-17 10:22 | PC.NURSE ---
ER AT BEDSIDE
[2022-10-17 10:26] LABS: Coronavirus 19, PCR Not Detected (NotDetected); Influenza A, PCR Not Detected (NotDetected); Influenza B, PCR Not Detected (NotDetected)
[2022-10-17 10:31] LABS: Procalcitonin 0.099 ng/mL (0.0-2.0)
[2022-10-17 10:39] LABS: Lactic Acid 1.2 mmol/L (0.7-2.1)
--- NOTE | 2022-10-17 12:19 | PC.NURSE ---
arrived to floor by w/c from ED
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
--- NOTE | 2022-10-18 00:02 | PC.NURSE ---
courtesy note: asked patient about bath, states she will take one at 6am.
[2022-10-18 04:00] VITALS: BP 100/52; PULSE 84; RESP 16; TEMP 36.7; O2SAT 95; BMI 23.8
--- NOTE | 2022-10-18 05:48 | PC.NURSE ---
courtesy note: pt agreed to bath at sink
[2022-10-18 06:33] LABS: Red Cell Distribution Width 13.1 % (11.5-17.5)
[2022-10-18 06:39] LABS: Basophils % 0.5 % (0.1-2.0); Eosinophils % 0.5 % (0.1-12.0); Hematocrit 40.3 % (37.0-47.0); Lymphocytes # 1.8 K/mm3 (0.7-4.5); Lymphocytes % 25.8 % (10-50); Mean Corpuscular HGB Conc 31.6 g/dL (31.8-35.4); Mean Corpuscular Hemoglobin 27.7 pg (27.0-31.2); Mean Corpuscular Volume 87.7 fl (81-99); Mean Platelet Volume 7.9 fl (7.4-10.4); Monocytes # 0.5 K/mm3 (0.1-1.0); Monocytes % 7.3 % (1.7-9.3); Neutrophils # 4.5 K/mm3 (1.8-7.8); Neutrophils % 65.9 % (37.0-80.0); Platelet Count 283 K/mm3 (142-424); Red Blood Count 4.59 M/mm3 (4.20-5.40); White Blood Count 6.8 K/mm3 (4.8-10.8)
[2022-10-18 06:41] LABS: Chloride 102 mmol/L (98-107); Hemoglobin 12.7 g/dL (12.2-16.2)
[2022-10-18 06:42] LABS: Potassium 3.8 mmoL/L (3.5-5.1); Sodium 135 mmol/L (136-145)
[2022-10-18 06:45] LABS: Alanine Aminotransferase 67 U/L (12-78); Albumin/Globulin Ratio 1.3 (1.1-1.8); Alkaline Phosphatase 80 U/L (38-126); Anion Gap 13.8 mEq/L (5-15); Aspartate Amino Transferase 61 U/L (14-36); Bilirubin,Total 0.4 mg/dl (0.2-1.3); Blood Urea Nitrogen 8 mg/dl (7-17); Calcium 8.7 mg/dl (8.4-10.2); Carbon Dioxide 23 mmol/L (22.0-30.0); Creatinine Clearance Estimated 51 mL/min (50-200); Estimated Glomerular Filt Rate 82 ml/min (>60); GFR (African American) 99 ML/MIN (>60); Glucose 94 mg/dl (74-100)
[2022-10-18 07:26] VITALS: BP 94/55; PULSE 79; RESP 17; TEMP 36.8; O2SAT 94
[2022-10-18 08:00] VITALS: O2SAT 94
--- NOTE | 2022-10-18 12:22 | PC.NURSE ---
pt called out after Rocephin infusion and reported itching. Pt reports itching in the same area that she was admitted with prior to Rocephin infusion. Dr. Goldstein notified and to bedside to see patient.
--- NOTE | 2022-10-18 15:26 | PC.NURSE ---
pt alert and oriented. LS cta. abdomen soft, nontender, bs active. pt ambulates in room to bathroom. medications changed during this shift. pt has had family at bedside. call light w/i reach.
[2022-10-18 16:00] VITALS: BP 108/68; PULSE 80; RESP 18; TEMP 36.7; O2SAT 94
--- NOTE | 2022-10-18 16:20 | EXP.ACUTE.PN ---
Subjective *Date: 10/18/22 *Time: 16:20 Interval history: Patient continues to have itchy rash left back. No significant change from yesterday. Patient remains afebrile and hemodynamically stable. Labs reviewed, remain within normal limits today. Stable on room air. States that after receiving vancomycin, developed some pruritus. That has resolved. Tolerating p.o. intake. No chest pain, shortness of breath, nausea, vomiting. Medical Exam Vital signs and Labs for Last 24 Hours: Vital Signs Temp Pulse Resp BP Pulse Ox 10/18/22 16:00 98.1 F 80 18 108/68 L 94 L 10/18/22 08:00 94 L 10/18/22 07:26 98.3 F 79 17 94/55 L 94 L 10/18/22 04:00 98.1 F 84 16 100/52 L 95 10/17/22 20:00 100.3 F H 93 H 16 118/68 94 L Intake and Output 10/18/22 10/18/22 10/18/22 07:59 15:59 23:59 Intake Total 720 / 720 Output Total 0 / 0 0 / 0 Balance 0 / 720 720 / 720 Intake: Intake, Oral Amount 720 / 720 Output: Output, Urine Amount 0 / 0 0 / 0 Other: Number of Unmeasured Voids 1 1 Weight 64.864 kg Patient Weight 10/18/22 23:59 Weight 64.864 kg Laboratory Results - last 24 hr 10/18/22 06:13: Sodium 135 L, Potassium 3.8, Chloride 102, Carbon Dioxide 23, Anion Gap 13.8, BUN 8 D, Creatinine 0.70, Estimated Creat Clear 51, Estimated GFR 82, Est GFR ( Amer) 99, Glucose 94 D, Calcium 8.7, Total Bilirubin 0.4, AST 61 H D, ALT 67, Alkaline Phosphatase 80, Total Protein 7.0, Albumin 4.0 D, Globulin 3.0, Albumin/Globulin Ratio 1.3 10/18/22 06:13: WBC 6.8, RBC 4.59, Hgb 12.7 D, Hct 40.3, MCV 87.7, MCH 27.7, MCHC 31.6 L, RDW 13.1, Plt Count 283, MPV 7.9, Neut % (Auto) 65.9, Lymph % (Auto) 25.8, [place] % (Auto) 7.3, Eos % (Auto) 0.5, Baso % (Auto) 0.5, Neut # (Auto) 4.5, Lymph # (Auto) 1.8, [place] # (Auto) 0.5, Eos # (Auto) 0.0, Baso # (Auto) 0.0 I & O for Labs for Last 24 Hours: Intake & Output 10/15/22 10/16/22 10/17/22 10/18/22 23:59 23:59 23:59 23:59 Intake Total 1065 / 1065 720 / 720 Output Total 0 / 0 Balance 1065 / 1065 720 / 720 Weight 62.227 kg 64.864 kg Constitutional: Present no acute distress, average body habitus and cooperative Head: Present atraumatic and normocephalic ENT: Present normal exam Neck: Present normal inspection Respiratory: Present CTA bilaterally; Absent rhonchi, wheezes or crackles Cardiac: Present Reg Rate and Rhythm GI: Present soft; Absent distention or tenderness Extremities: Present normal inspection Skin: Present intact and erythema (Diffuse on the back, more prominent on the left. Warm to touch. Erythema blanches. No vesicles; erythema receding from leading edge marked around rash yesterday.); Absent cyanosis Neuro: Present alert, awake, oriented x 3 and moves all extremities Assessment and Plan *Assessment and plan (1) Cellulitis of back: Status: Acute Category: Medical Code(s): L03.312 - Cellulitis of back [any part except buttock] (2) Transaminitis: Status: Acute Category: Medical Code(s): R74.01 - Elevation of levels of liver transaminase levels (3) Tachycardia: Status: Acute Category: Medical Code(s): R00.0 - Tachycardia, unspecified Plan 72-year-old female with erythematous rash on back. Cellulitis versus dermatitis. Admitted for IV antibiotics and monitoring. Has had no worsening but no significant improvement in rash since starting antibiotics yesterday. Received dose of vancomycin and proceeded to have red man reaction. Stable on room air. Afebrile. Labs remain within normal limits. Problems addressed as follows: #Suspected dermatitis versus cellulitis -Transitioned back to IV antibiotics today. Ceftriaxone IV 1 g x 1. Had itching after vancomycin. Given appearance of rash and progression over the past several weeks with no systemic symptoms and no elevated white cell count, will trial single dose of dexamethasone out of concern for allergic component.
[2022-10-18 20:00] VITALS: BP 124/74; PULSE 81; RESP 18; TEMP 36.6; O2SAT 95
[2022-10-19] VITALS: BP 118/85; PULSE 85; RESP 18; TEMP 36.6; O2SAT 93
[2022-10-19 04:00] VITALS: BP 113/69; PULSE 95; RESP 18; TEMP 36.6; O2SAT 95; BMI 23.8
[2022-10-19 06:31] LABS: Basophils % 0.1 % (0.1-2.0); Eosinophils % 0.3 % (0.1-12.0); White Blood Count 4.5 K/mm3 (4.8-10.8)
[2022-10-19 06:41] LABS: Chloride 110 mmol/L (98-107); Hemoglobin 10.7 g/dL (12.2-16.2); Lymphocytes # 0.8 K/mm3 (0.7-4.5); Lymphocytes % 18.3 % (10-50); Mean Corpuscular HGB Conc 31.5 g/dL (31.8-35.4); Mean Corpuscular Hemoglobin 27.8 pg (27.0-31.2); Mean Corpuscular Volume 88.4 fl (81-99); Mean Platelet Volume 8.4 fl (7.4-10.4); Monocytes # 0.4 K/mm3 (0.1-1.0); Monocytes % 9.6 % (1.7-9.3); Neutrophils # 3.3 K/mm3 (1.8-7.8); Neutrophils % 71.7 % (37.0-80.0); Platelet Count 277 K/mm3 (142-424); Red Blood Count 3.85 M/mm3 (4.20-5.40); Red Cell Distribution Width 13.2 % (11.5-17.5)
[2022-10-19 06:42] LABS: Sodium 138 mmol/L (136-145)
[2022-10-19 06:44] LABS: Alanine Aminotransferase 59 U/L (12-78); Alkaline Phosphatase 69 U/L (38-126); Anion Gap 10.5 mEq/L (5-15); Aspartate Amino Transferase 53 U/L (14-36); Blood Urea Nitrogen 9 mg/dl (7-17); Carbon Dioxide 21 mmol/L (22.0-30.0); Creatinine Clearance Estimated 51 mL/min (50-200); Estimated Glomerular Filt Rate 121 ml/min (>60); GFR (African American) 146 ML/MIN (>60); Potassium 3.5 mmoL/L (3.5-5.1)
[2022-10-19 06:45] LABS: Albumin Level 3.2 g/dl (3.5-5.0); Albumin/Globulin Ratio 1.1 (1.1-1.8); Bilirubin,Total < 0.1 mg/dl (0.2-1.3); Calcium 7.8 mg/dl (8.4-10.2); Globulin 2.8 g/dL (1.3-3.2); Glucose 105 mg/dl (74-100)
[2022-10-19 06:51] LABS: C-Reactive Protein 45.5 mg/L (0-4)
[2022-10-19 07:01] LABS: Magnesium 1.8 mg/dl (1.6-2.3)
[2022-10-19 07:39] LABS: Procalcitonin 0.077 ng/mL (0.0-2.0)
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
[2022-10-19 08:00] VITALS: BP 127/73; PULSE 78; RESP 16; TEMP 36.6; O2SAT 98
[2022-10-19 09:16] LABS: Erythrocyte Sedimentation Rate > 140 mm/hr (0-30)
--- NOTE | 2022-10-19 11:38 | HMH.PHAINT1 ---
Pharmacy Intervention Comments: Discharge medication counseling completed. Patient was starting the following new meds: -loratadine: Said side effects of headache or drowsiness were unlikely but possible. Patient said she had taken it before and had a dose inpatient without any problems Patient was stopping the following medications: -cetirizine: starting Claritin instead -triamcinolone cream Verified that new prescription was being sent to preferred pharmacy. Patient verbalized understanding and had no questions.
--- NOTE | 2022-10-20 14:37 | CARE MANAGER ---
Spoke with patient for post-discharge phone interview, no issues noted.
== END 2022-10-19 12:09 | disposition home or self-care (01) ==
LOC: ER 10:43 → 2ND 12:12
PROVIDERS: Internal Medicine Adolescent Medicine; Admitting Provider Internal Medicine; Emergency Provider Student in an Organized Health Care Education/Training Program; PCP Family Medicine; Visit Provider Internal Medicine
DX: L03.312 Cellulitis of back [any part except buttock and flank] (principal); Z79.899 Other long term (current) drug therapy; R74.01 Elevation of levels of liver transaminase levels; R00.0 Tachycardia, unspecified; L27.0 Generalized skin eruption due to drugs and medicaments taken internally; T36.8X5A Adverse effect of other systemic antibiotics, initial encounter; Y92.230 Patient room in hospital as the place of occurrence of the external cause; K21.9 Gastro-esophageal reflux disease without esophagitis
CPT/HCPCS: G0378; 71045; 80053; 83605; 83735; 84145; 85025; 85651; 86140; 87040; 87635; 87636; 99285; C9803; J0696; J2405; U0003; U0005

== ENCOUNTER → 2023-02-14 10:10 | Outpatient (CLI) | payer MEDICARE, SELFPAY ==
--- NOTE | 2023-02-14 10:10 | MM_ITS ---
PROCEDURE INFORMATION: Exam: MG Bilateral Screening 3D Mammography Exam date and time: 02/14/2023 9:58 AM Age: 73 years old Clinical indication: Screening. Her mother had breast cancer at age 85. TECHNIQUE: Imaging protocol: Bilateral Screening tomosynthesis and 2D mammography including computer-aided detection (CAD) when performed. COMPARISON: 1. MG MM DIG SCREENING MAMM BI W/CAD 02/11/2022 8:42 AM 2. MG MM DIG SCREENING MAMM BI W/CAD 10/14/2020 11:08 AM 3. MG SCBI MM Dig screening mamm BI w/CAD 04/11/2018 10:13 AM 4. MG DMSB DIG MAMM-SCREEN ALEX 12/18/2013 9:27 AM FINDINGS: MAMMOGRAPHY: Breast composition: The breasts are heterogeneously dense, which may obscure small masses. Mass: None. Architectural distortion: None. Calcifications: No suspicious calcifications. Asymmetric density: None. Skin thickening: None. Axillary adenopathy: None. IMPRESSION: No mammographic evidence of malignancy. Annual screening is recommended unless otherwise clinically indicated. ASSESSMENT: BI-RADS Category 1: Negative
== END ==
PROVIDERS: PCP Family Medicine; Visit Provider Nurse Practitioner Family
DX: Z12.31 Encounter for screening mammogram for malignant neoplasm of breast (principal)
CPT/HCPCS: 77063; 77067

== ENCOUNTER 2023-03-08 08:47 | Day surgery (SDC) | payer MEDICARE, SELFPAY ==
[2023-03-04 15:08] VITALS: BMI 21.4
--- NOTE | 2023-03-08 08:59 | HMH.SCOPE ---
Procedure: Date: 03/08/23 Patient Date of :: 1950 Procedure Performed:: Colonoscopy Indications:: History of colon polyps Note: History of multiple complex polyps including a 1.5 cm polyp at 10 cm that was a tubular adenoma with a small focus of high-grade dysplasia. This was excised in 2019. 2 separate colonoscopies in 2019 revealed multiple other complex polyps, hemorrhoidal cushions, scattered diverticulosis, and severe spasticity limiting visualization. Most recent colonoscopy in October 2020 revealed an adenoma at the hepatic flexure and an additional adenoma of the transverse colon. Performing Provider:: Jimmie Almanza MD Referring Provider:: . Sedation:: Monitored anesthesia care Procedure:: After informed consent was obtained the patient was taken to the endoscopy suite. Sedation ensued after the patient was transferred to the left lateral decubitus position. Pulse, blood pressure, and oxygen saturation were monitored throughout the procedure. Digital rectal exam revealed no significant abnormality. The colonoscope was placed in position. The entire colon was evaluated. The colonoscope was carefully removed and the patient was transferred to recovery in stable condition. Please see findings and specimens below for detail. Findings:: Bowel preparation moderate Unchanged hemorrhoidal cushions Unchanged diverticulosis Sessile splenic flexure polyp Specimens:: Sessile splenic flexure polyp (cold biopsy forceps) Recommendations:: Repeat colonoscopy in 2-3 years secondary to significant history of polyps and polyps noted on fairly short-term repeat evaluation. Complications:: No immediate Estimated blood obtained (mL): 1 Colonoscopy Component Colonoscopy Component Was a colonoscopy performed during today's procedure?: Yes Recommended follow up colonoscopy of at least 10 years?: No If no, follow up colonoscopy recommended in ___ years?: (See above) Reason for not recommending >/= 10 yr follow-up interval?: (See above)
[2023-03-08 09:00] VITALS: BP 137/90; PULSE 108; RESP 18; TEMP 36.3; O2SAT 98
[2023-03-08 09:13] VITALS: O2SAT 98
[2023-03-08 09:41] VITALS: BP 88/57; PULSE 78; RESP 16; TEMP 36.5; O2SAT 96
--- NOTE | 2023-03-08 09:48 | EXP.ANES.CKL ---
[facility] Disclaimer: The information contained in this section may have been updated after the patient was seen, as this information can be updated by other users. Medical History GERD (gastroesophageal reflux disease) Osteoporosis Surgical History History of lung surgery Family History Mother Cancer Father Heart attack Sister Cancer Social History (Updated 03/08/23 @ 09:05 by Lizbet Suarez RN) Smoking Status: Never smoker alcohol intake: never substance use type: denies use current occupational status: retired Travel in the last 8 weeks: None household members: spouse housing: house caffeine: No [facility] Anesthesia Checklist Patient Identification Patient Identification: Arm Band and Family Structural Data Admitted From: Home Planned Operative Procedure/s: Colonoscopy Consent for Planned Operative Procedure(s) Verified: Yes Verified Documents: Surgical Consent and History and Physical NPO Status Verified Time NPO: 00:00 Additional verifications Patient : No Anesthesia Reactions: No Hx Blood Transfusions: No Blood Transfusion Reaction: No Cephalosporin Allergy: No Previous Colonoscopy: No Airway Assessment Mallampati Score:: Class I C-Spine Mobility Assessed: Yes TMJ Mobility Assessed: Yes Dentition: Good Dentition Neurological Assessment Level of Consciousness: Awake, Alert, Appropriate and Follows Commands Hx Seizures: No Numbness or tingling in extremities: No Anesthesia Plan Anesthesia Risk discussed: Yes ASA Class: I Anesthesia Type: MAC
[2023-03-08 09:51] VITALS: BP 98/72; PULSE 82; RESP 16; O2SAT 97
[2023-03-08 10:01] VITALS: BP 97/59; PULSE 86; RESP 18; O2SAT 98
[2023-03-08 10:11] VITALS: BP 121/69; PULSE 82; RESP 18; O2SAT 97
== END 2023-03-08 10:11 | disposition home or self-care (01) ==
PROVIDERS: PCP Family Medicine; Visit Provider Surgery
PROC: 0DJD8ZZ Inspection of Lower Intestinal Tract, Via Natural or Artificial Opening Endoscopic (ICD-10-PCS; CPT 45380; principal; 2023-03-08 09:30)
DX: Z12.11 Encounter for screening for malignant neoplasm of colon (principal); Z86.010 Personal history of colon polyps; K57.30 Diverticulosis of large intestine without perforation or abscess without bleeding; K63.5 Polyp of colon
CPT/HCPCS: 45380; 88305

== ENCOUNTER 2024-03-05 16:53 | Outpatient (CLI) | payer MEDICARE, SELFPAY ==
[2024-03-05 16:12] LABS: Basophils # 0.1 K/mm3 (0-0.2); Eosinophils # 0.3 K/mm3 (0.0-0.4); Eosinophils % 6.1 % (0.1-12.0); Hematocrit 42.2 % (37.0-47.0); Hemoglobin 14.2 g/dL (12.2-16.2); Lymphocytes # 2.1 K/mm3 (0.7-4.5); Lymphocytes % 42.1 % (10-50); Mean Corpuscular HGB Conc 33.7 g/dL (31.8-35.4); Mean Corpuscular Hemoglobin 29.5 pg (27.0-31.2); Mean Corpuscular Volume 87.5 fl (81-99); Mean Platelet Volume 8.8 fl (7.4-10.4); Monocytes # 0.4 K/mm3 (0.1-1.0); Monocytes % 7.9 % (1.7-9.3); Neutrophils # 2.1 K/mm3 (1.8-7.8); Neutrophils % 42.8 % (37.0-80.0); Platelet Count 250 K/mm3 (142-424); Red Blood Count 4.82 M/mm3 (4.20-5.40); Red Cell Distribution Width 13.7 % (11.5-17.5); White Blood Count 4.9 K/mm3 (4.8-10.8)
[2024-03-05 16:47] LABS: Albumin Level 4.6 g/dl (3.5-5.0); Chloride 102 mmol/L (98-107); Potassium 4.7 mmoL/L (3.5-5.1); Sodium 138 mmol/L (136-145)
[2024-03-05 16:49] LABS: Alanine Aminotransferase 17 U/L (12-78); Anion Gap 14.7 mEq/L (5-15); Aspartate Amino Transferase 29 U/L (14-36); Blood Urea Nitrogen 12 mg/dl (7-17); Carbon Dioxide 26 mmol/L (22.0-30.0); Estimated Glomerular Filt Rate 82 ml/min (>60); GFR (African American) 99 ML/MIN (>60)
[2024-03-05 16:50] LABS: Albumin/Globulin Ratio 1.7 (1.1-1.8); Alkaline Phosphatase 75 U/L (38-126); Bilirubin,Total 0.6 mg/dl (0.2-1.3); Calcium 9.5 mg/dl (8.4-10.2); Chol/HDL Ratio 4.6 (1-3.5); Cholesterol 254 mg/dl (140-200); Globulin 2.7 g/dL (1.3-3.2); Glucose 94 mg/dl (74-100); HDL Cholesterol 55 mg/dl (40-60); Total Protein,Serum 7.3 g/dl (6.3-8.2); Triglycerides 160 mg/dl (30-150); VLDL Cholesterol 32 mg/dL (0-40)
[2024-03-05 17:01] LABS: Direct LDL Cholesterol 128.78 mg/dL (100-129)
[2024-03-05 17:20] LABS: Thyroid Stimulating Hormone 0.11 uIU/mL (0.465-4.68)
[2024-03-06 09:13] LABS: T4 (Thyroxine) 10.4 ug/dl (5.53-11.0)
== END 2024-03-05 23:59 | disposition home or self-care (01) ==
LOC: LAB.DROPOF 16:53
PROVIDERS: PCP Family Medicine; Visit Provider Family Medicine
DX: D64.9 Anemia, unspecified (principal); M81.0 Age-related osteoporosis without current pathological fracture; K21.9 Gastro-esophageal reflux disease without esophagitis; Z13.220 Encounter for screening for lipoid disorders; R94.6 Abnormal results of thyroid function studies; R79.89 Other specified abnormal findings of blood chemistry
CPT/HCPCS: 80053; 80061; 84436; 84443; 85025

== ENCOUNTER 2024-03-21 15:34 | Outpatient (CLI) | payer MEDICARE, SELFPAY ==
--- NOTE | 2024-03-21 15:40 | MM_ITS ---
PROCEDURE INFORMATION: Exam: MG Bilateral Screening 3D Mammography Exam date and time: 03/21/2024 3:28 PM Age: 74 years old Clinical indication: Screening exam. TECHNIQUE: Imaging protocol: Bilateral Screening tomosynthesis and 2D mammography including computer-aided detection (CAD) when performed. COMPARISON: 1. MG MM DIG SCREENING MAMM BI W/CAD 02/11/2022 2. MG MM DIG SCREENING MAMM BI W/CAD 02/14/2023 FINDINGS: MAMMOGRAPHY: Breast composition: The breasts are heterogeneously dense, which may obscure small masses. Mass: Ma ss: No suspicious masses. Architectural distortion: None. Calcifications: No suspicious calcifications. Asymmetric density: None. Skin thickening: None. Axillary adenopathy: None. IMPRESSION: No mammographic evidence of malignancy. Annual screening is recommended unless otherwise clinically indicated. ASSESSMENT: BI-RADS Category 1: Negative.
--- NOTE | 2024-03-21 15:40 | XR_ITS ---
FINAL REPORT TECHNIQUE: Bone densitometry calculations of the lumbar spine and left hip were obtained. CLINICAL HISTORY: screening FINDINGS: Using L1-4, the bone mineral density of the spine is 0.552 g/cm2, corresponding to T-score of -4.5. Using the left hip, the bone mineral density of the femoral neck is 0.453 g/cm2, corresponding to a T-score of -3.6. Using the right hip, the bone mineral density of the femoral neck is 0.510 g/cm2, corresponding to a T-score of -3.1. NOTE: T-score: Standard deviation compared with peak bone mass of young adult mean. *Following the recommendations of the International Society of Bone Densitometry, classification of hip BMD is based on the lower of two T-scores; total hip or femoral neck. IMPRESSION: Osteoporosis: Lowest T-score is at or below -2.5. This patient''s T-score meets the World Health Organization criteria for osteoporosis. Reviewed, Interpreted and Dictated by Hussain Russell III, MD Transcribed by Jaymie Isidro Authenticated and [facility]
== END 2024-03-21 23:59 | disposition home or self-care (01) ==
LOC: RAD 15:35
PROVIDERS: PCP Family Medicine; Visit Provider Family Medicine
DX: Z12.31 Encounter for screening mammogram for malignant neoplasm of breast (principal); M81.0 Age-related osteoporosis without current pathological fracture
CPT/HCPCS: 77063; 77067; 77080

== ENCOUNTER 2025-04-11 11:22 | Outpatient (CLI) | payer MEDICARE, SELFPAY ==
[2025-04-11 17:46] LABS: Hematocrit 42.2 % (37.0-47.0); Hemoglobin 13.8 g/dL (12.2-16.2); Immature Granulocytes % 0.2 %; Mean Corpuscular HGB Conc 32.7 g/dL (31.8-35.4); Mean Corpuscular Hemoglobin 29.1 pg (27.0-31.2); Mean Corpuscular Volume 89.0 fl (81-99); Nucleated Red Blood Cells % 0 %; Platelet Count 256 K/mm3 (142-424); Red Blood Count 4.74 M/mm3 (4.20-5.40); Red Cell Distribution Width-SD 42.1 fL; White Blood Count 4.6 K/mm3 (4.8-10.8)
[2025-04-11 18:06] LABS: Alanine Aminotransferase 15 U/L (12-78); Albumin Level 4.7 g/dl (3.5-5.0); Albumin/Globulin Ratio 1.8 (1.1-1.8); Alkaline Phosphatase 69 U/L (38-126); Anion Gap 10.9 mEq/L (5-15); Aspartate Amino Transferase 24 U/L (14-36); Bilirubin,Total 0.5 mg/dl (0.2-1.3); Blood Urea Nitrogen 12 mg/dl (7-17); Calcium 9.8 mg/dl (8.4-10.2); Carbon Dioxide 23 mmol/L (22.0-30.0); Chloride 105 mmol/L (98-107); Cholesterol 236 mg/dl (140-200); Creatinine,Serum 0.80 mg/dl (0.52-1.04); Estimated Glomerular Filt Rate 70 ml/min (>60); GFR (African American) 84 ML/MIN (>60); Globulin 2.6 g/dL (1.3-3.2); Glucose 93 mg/dl (74-100); HDL Cholesterol 59 mg/dl (40-60); Potassium 4.9 mmoL/L (3.5-5.1); Sodium 134 mmol/L (136-145); Total Protein,Serum 7.3 g/dl (6.3-8.2); Triglycerides 141 mg/dl (30-150)
[2025-04-11 18:23] LABS: T4 (Thyroxine) 10.6 ug/dl (5.53-11.0)
[2025-04-11 18:36] LABS: Thyroid Stimulating Hormone 3.92 uIU/mL (0.465-4.68)
--- OUTSIDE RECORDS SUMMARY | 2025-04-14 11:23 | XMS_ITS | Clinical Summary ---
Author Organization Healthcare Address [address] [place] [address] Care Team Providers Care Lithographer Helper Name Role Phone Roxana Suarez APRN Primary Care Provider [phone] Allergies Active Allergy Reactions Criticality Noted Date Comments Iv Contrast Unknown - Patient st ates they do not know rxn details Low 12/31/2020 Medications omeprazole (PriLOSEC) [address] capsule Take 40 mg by mouth 1 (one) time each day. 10/21/2020 Active aspirin 81 MG EC tablet Take 81 mg by mouth 1 (one) time each day. Active cetirizine (ZyrTEC) 10 MG tablet Take 10 mg by mouth 1 (one) time each day. Active Active Problems Problem Noted Date Diagnosed Date PFO (patent foramen ovale) 12/30/2020 GERD (gastroesophageal reflux disease) TIA (transient ischemic attack) 12/30/2020 Generalized osteoarthritis of hand 02/05/2014 Vitamin D deficiency 01/23/2014 Myalgia 01/01/2014 Positive LALO (antinuclear antibody) 01/01/2014 Family History Medical History Relation Name Comments Heart attack Father Breast cancer Mother Diabetes Other 1 Breast cancer Other 2 Lupus Paternal Cousin 1 Conversions - Other Paternal Cousin 2 Rhe umatoid arteritis Brain Tumor Sibling Breast cancer Sister Colon cancer Sister Hypertension Sister Relation Name Status Comments Father Mother Other 1 Other 2 Paternal Cousin 1 Paternal Cousin 2 Sibling Sister Social History Tobacco Use Types Packs/Day Years Used Date Smoking Tobacco: Never Smokeless Tobacco: Never Alcohol Use Standard Drinks/Week Comments No 0 (1 standard drink = 0.6 oz pur e alcohol) Comments Unknown Sex and Gender Information Value Date Recorded Sex Assigned at Not on file Legal Sex Female 6:38 PM EDT Gender Identity Not on file Sexual Orientation Not on file Last Filed Vital Signs Vital Sign Reading Time Taken Comments Blood Pressure 142/86 12/31/2020 10:18 AM EDT Pulse 107 12/31/2020 10:18 AM EDT Temperature - - Respiratory Rate - - Oxygen Saturation 96% 12/31/2020 10:18 AM EDT Inhaled Oxygen Concentration - - Weight 60.3 kg (133 lb) 12/31/2020 10:17 AM EDT Height 165.1 cm (5' 5 ) 12/31/2020 10:17 AM EDT Body Mass Index 22.13 12/31/2020 10:17 AM EDT Plan of Treatment Health Maintenance Due Date Last Done Comments [facility]-Bone Density Scan 1949 [facility]-Depression Screening 1950 [facility]-Infant/Child/Adol SDOH Screenings 1950 [facility]- SDOH Screenings 1967 [facility]-Adult SDOH Screenings 1967 [facility]-DTaP,Tdap,and Td Vaccines (1 - Tdap) 01/04/1968 [facility]-Pneumococcal Vaccine: 50+ Years (1 of 1 - PCV) 1999 [facility]-Zoster Vaccines (1 of 2) 1999 [facility]-RSV Vaccine: 60+ Years or (1 - 1-dose 75+ series) 01/04/2024 [id number] Vaccine (3 - season) 2025 07/31/2020, 07/03/2020 [facility]-Influenza Vaccine (#1) 01/07/202502/10, 02/23/2019 HPV Vaccines Aged Out No longer eligi ble based on patient's age to complete this topic [facility]-HIB Vaccines Aged Out No longer e ligible based on patient's age to complete this topic [facility]-Hepatitis A Vaccines Aged Out No longer eligible based on patient's age to complete this topic [facility]-IPV Vaccines Aged Out No longer e ligible based on patient's age to complete this topic [facility]-Rotavirus Vaccines Aged Out No lo nger eligible based on patient's age to complete this topic Insurance MEDICARE GENERIC [employer]CIAL Care Teams Lithographer Helper Relationship Specialty Start Date End Date Roxana Suarez APRN [address] [place] [address] PCP - General 09/19/20
== END 2025-04-11 23:59 | disposition home or self-care (01) ==
LOC: LAB.DROPOF 04-14 11:22
PROVIDERS: PCP Family Medicine; Visit Provider Family Medicine
DX: K21.9 Gastro-esophageal reflux disease without esophagitis (principal); E05.90 Thyrotoxicosis, unspecified without thyrotoxic crisis or storm; Z11.4 Encounter for screening for human immunodeficiency virus [HIV]
CPT/HCPCS: 80053; 80061; 84436; 84443; 85025; 87389

== ENCOUNTER 2025-05-03 09:43 | Outpatient (CLI) | payer MEDICARE, SELFPAY ==
--- OUTSIDE RECORDS SUMMARY | 2025-05-03 09:47 | XMS_ITS | Clinical Summary ---
Author Organization Healthcare Address [address] [place] [address] Care Team Providers Care Lard Refiner Name Role Phone Roxana Suarez APRN Primary Care Provider Allergies Active Allergy Reactions Criticality Noted Date [...] [facility]-Bone Density Scan 1950 [facility]-Depression Screening 1949 [facility]-/Child/Adol SDOH Screenings 1949 [facility]- SDOH Screenings 1967 [facility]-Adult SDOH Screenings 1967 [facility]-DTaP,Tdap,and Td Vaccines (1 - Tdap) 01/04/1968 [facility]-Pneumococcal Vaccine: 50+ Years (1 of 1 - PCV) 1999 [facility]-Zoster Vaccines (1 of 2) 1999 [facility]-RSV Vaccine: 60+ Years or (1 - 1-dose 75+ series) 01/04/2024 [id number] Vaccine (3 - season) 2025 07/31/2020, 07/03/2020 [facility]-Influenza Vaccine (#1) 01/07/202502/10, 02/23/2019 HPV Vaccines (No Doses Required) Completed [facility]-HIB Vaccines Aged Out No longer e [...] topic Insurance MEDICARE GENERIC COMMERCIAL Care Teams Lard Refiner Relationship Specialty Start Date End Date Roxana Suarez APRN [id number] PCP - General 09/19/20
--- NOTE | 2025-05-03 10:00 | MM_ITS ---
PROCEDURE INFORMATION: Exam: MG Bilateral Screening 3D Mammography Exam date and time: 05/03/2025 9:46 AM Age: 75 years old Clinical indication: Screening mammogram TECHNIQUE: Imaging protocol: Bilateral Screening tomosynthesis and 2D mammography including computer-aided detection (CAD) when performed. COMPARISON: 1. MG MM DIG SCREENING MAMM BI W/CAD 03/21/2024 3:28 PM 2. MG MM DIG SCREENING MAMM BI W/CAD 02/14/2023 9:58 AM FINDINGS: MAMMOGRAPHY: Breast composition: There are scattered areas of fibroglandular density. Mass: None. Architectural distortion: No new or suspicious architectural distortion. Calcifications: No new or suspicious calcifications are present Asymmetric density: No new or suspicious asymmetric density is present Skin thickening: None. Axillary adenopathy: None. IMPRESSION: No mammographic evidence of malignancy. Recommend annual screening mammography unless otherwise clinically indicated. ASSESSMENT: BI-RADS category 1: Negative.
== END 2025-05-03 23:59 | disposition home or self-care (01) ==
LOC: RAD 09:44
PROVIDERS: PCP Family Medicine; Visit Provider Family Medicine
DX: Z12.31 Encounter for screening mammogram for malignant neoplasm of breast (principal); R92.323 Mammographic fibroglandular density, bilateral breasts
CPT/HCPCS: 77063; 77067